=== PATIENT | female | born 1980 | race Caucasian/White ===

== ENCOUNTER 2016-12-05 08:45 | Emergency (ER) | payer MEDICAID ==
[~2016-12-05] VITALS: Ht 162.6 cm; Wt 75.4 kg
[~2016-12-05 08:45] MED LIST: CIPROFLOXACN500 MG PO; DEPO-PROVER150 MG/ML IM; FLEXERIL OR; LISINOPRIL10 MG PO; LORTAB 1010 MG PO; LORTAB 5 OR; LORTAB 5/3255 MG PO; NAPROSYN500 MG OR; NO HOME MEDS; PERCOCET 5/325M1 TAB OR; SYNTHROID50 MCG PO; ULTRAM50 M1 PO; ZOFRAN ODT4 MG OR
[2016-12-05 10:14] LABS: HEMATOCRIT 38.1 % (37.0-47.0); HEMOGLOBIN 12.6 g/dl (12.0-16.0); IMMATURE GRANULOCYTES 0.3 % (0.0-1.0); MEAN CELL VOLUME 92.5 fL CALC (80.0-100.0); MEAN CORPUSCULAR HGB 30.6 pG CALC (26.0-32.0); MEAN CORPUSCULAR HGB CONC 33.1 g/L CALC (32.0-36.0); NEUT# 6.34 thou/uL (2.00-7.15); RED BLOOD COUNT 4.12 mill/uL (4.20-5.60); RED CELL DISTRI WIDTH 12.1 % (11.5-15.5)
[2016-12-05 10:15] LABS: URINE BILIRUBIN - DIPSTICK NEGATIVE (NEGATIVE); URINE BLOOD DIPSTICK MODERATE (NEGATIVE); URINE COLOR YELLOW; URINE GLUCOSE - DIPSTICK NEGATIVE (NEGATIVE); URINE KETONE NEGATIVE (NEGATIVE); URINE LEUK ESTERASE TRACE (Negative); URINE NITRITE - DIPSTICK POSITIVE (Negative); URINE PROTEIN - DIPSTICK 100 mg/dL (NEG-TRACE); URINE SPECIFIC GRAVITY 1.025; URINE UROBILINOGEN - DIPSTICK 0.2 E.U./dL (0.2)
[2016-12-05 10:16] LABS: URINE CLARITY SLIGHT CLOUDY
[2016-12-05 10:17] LABS: URINE BACTERIA MODERATE hpf; URINE EPITHELIAL CELLS MODERATE EPI/hpf (0-FEW)
[2016-12-05 10:30] LABS: ANION GAP 15 (6-22 (CALC)); BUN 11 mg/dL (7-17); BUN/CREATININE RATIO 22 (12-20 (CALC)); CALCIUM 9.1 mg/dL (8.4-10.2); CARBON DIOXIDE 27 mmol/l (22-30); CHLORIDE 103 mmol/l (95-108); CREATININE 0.5 mg/dL (0.5-1.0); GFR > 60 ML/MIN (>=60 (CALC)); GFR FOR AFR.AMER. > 60 ML/MIN (>=60 (CALC)); GLUCOSE 104 mg/dL (65-105); POTASSIUM 4.2 mmol/l (3.5-5.1); SODIUM 141 mmol/l (137-146)
[2016-12-05 11:12] LABS: BETA-HCG, QUANT(RESULT NUMBER) 46257 mIU/mL
[2016-12-05 15:29] VITALS: BP 84/57
== END 2016-12-05 15:30 | disposition short-term general hospital (02) | DRG 781 ==
LOC: ED 08:45
PROVIDERS: Emergency Medicine
DX: O26.891 Other specified pregnancy related conditions, first trimester (principal); N13.2 Hydronephrosis with renal and ureteral calculous obstruction; Z3A.01 Less than 8 weeks gestation of pregnancy; R10.31 Right lower quadrant pain; R11.0 Nausea

== ENCOUNTER 2024-03-20 16:22 | Emergency (ER) | payer SELFPAY ==
[2024-03-20] VITALS (12 sets, daily range): BP systolic 118–163; BP diastolic 68–114
[~2024-03-20] VITALS: Ht 160 cm; Wt 86.4 kg
[2024-03-20] MEDS ORDERED: KETOROLAC TROMETHAMINE 30 MG/ML SDV IV ONE (16:35)
[2024-03-20] MEDS ORDERED: SODIUM CHLORIDE 0.9% 1,000 ML IV ONE (16:35)
[2024-03-20 17:00] LABS: BASO% 0.4 % (0-3); EOS% 1.7 % (0-8); HEMATOCRIT 41.5 % (37.0-47.0); HEMOGLOBIN 13.6 g/dl (12.0-16.0); IMMATURE GRANULOCYTES 0.2 % (0.0-5.0); LYMPH% 28.1 % (15-41); MEAN CELL VOLUME 92.8 fL CALC (80.0-100.0); MEAN CORPUSCULAR HGB 30.4 pG CALC (26.0-32.0); MEAN CORPUSCULAR HGB CONC 32.8 g/dL CAL (32.0-36.0); MONO% 5.2 % (2-13); NEUT# 7.91 thou/uL (2.00-7.15); NEUT% 64.4 % (42-76); RED BLOOD COUNT 4.47 mill/uL (4.20-5.60); RED CELL DISTRI WIDTH 12.1 % (11.5-15.5)
[2024-03-20 17:04] LABS: URINE BILIRUBIN - DIPSTICK Negative (NEGATIVE); URINE BLOOD DIPSTICK Moderate (NEGATIVE); URINE COLOR Yellow; URINE GLUCOSE - DIPSTICK Negative (NEGATIVE); URINE KETONE 15 mg/dL (NEGATIVE); URINE LEUK ESTERASE Small (NEGATIVE); URINE NITRITE - DIPSTICK Negative (Negative); URINE PH 5.5 (4.5-8.0); URINE PROTEIN - DIPSTICK 30 mg/dL (NEG-TRACE); URINE SPECIFIC GRAVITY >=1.030; URINE UROBILINOGEN - DIPSTICK 0.2 E.U./dL (0.2)
[2024-03-20 17:05] LABS: URINE WBC 50-100 WBC/hpf (0-5)
[2024-03-20 17:06] LABS: URINE SQUAMOUS EPITHELIAL CELL FEW EPI/hpf (0-FEW)
[2024-03-20 17:07] LABS: URINE BACTERIA MODERATE hpf; URINE HYALINE CAST FEW lpf (NONE-RARE)
[2024-03-20 17:17] LABS: ALBUMIN 4.1 g/dL (3.2-5.0); BILIRUBIN, TOTAL 0.6 mg/dL (0.02-1.3); CREATININE 0.8 mg/dL (0.5-1.0); POTASSIUM 3.9 mmol/l (3.5-5.1); TOTAL PROTEIN 7.4 g/dL (6.3-8.2)
[2024-03-20] MEDS ORDERED: cefTRIAXone SODIUM 2 GM in SODIUM CHLORIDE 0.9% 100 ML IV ONE (17:40)
[2024-03-20] MEDS ORDERED: MORPHINE SULFATE 4 MG/ML VIAL IV ONE (19:25)
[2024-03-20] MEDS ORDERED: ONDANSETRON HCl 4 MG/2 ML SDV IV ONE (19:25)
[2024-03-20] MEDS ORDERED: LORTAB 5/3255 MG PO (19:46)
[2024-03-20] MEDS ORDERED: KEFLEX500 MG PO (19:46)
[2024-03-20] MEDS ORDERED: PHENAZOPYRIDIN100 M1 PO (19:46)
[2024-03-20] MEDS ORDERED: HYDROcodone 7.5 MG/Acetaminophen 325 MG/COMBO PO ONE (19:55)
== END 2024-03-20 20:07 | disposition home or self-care (01) | DRG 690 ==
LOC: ED 16:22
PROVIDERS: Nurse Practitioner
DX: N39.0 Urinary tract infection, site not specified (principal); B96.20 Unspecified Escherichia coli [E. coli] as the cause of diseases classified elsewhere; N20.0 Calculus of kidney; Z87.442 Personal history of urinary calculi